=== PATIENT | male | born 1995 | race Caucasian/White ===

== ENCOUNTER 2016-04-15 22:43 | Emergency (ER) | payer OTHER ==
[~2016-04-15] VITALS: Ht 172.7 cm; Wt 57.7 kg
[2016-04-15 22:45] VITALS: BP 119/57; PULSE 110; RESP 20; TEMP 102.9; O2SAT 98
[2016-04-15] MEDS ORDERED: IBUPROFEN 600 MG TAB PO ONE (23:45)
--- NOTE | 2016-04-15 23:57 | PD ---
HPI Chief Complaint: Fever Time Seen by Provider: 23:56 Travel History International Travel<30 days: No Contact w/Intl Traveler<30days: No Traveled to known affect area: No History of Present Illness HPI 21-year-old male presents emergency department with a one-day history of subjective fever and chills, headache, sore throat, congestion, slight cough and nausea. He denies any vomiting. No ear pain. No shortness of breath or wheezing. No abdominal pain or urinary symptoms. No rashes or lesions. He is eating once today. He has had a decreased appetite. He has not taken anything for his fever. [facility] Past Medical History Medical History: Denies Significant Hx Tetanus Vaccination: < 5 Years Past Surgical History Surgical History: No Previous Surgery Social History Alcohol Use: Yes Tobacco Use: Yes Allergies-Medications (Allergen,Severity, Reaction): Coded Allergies: No Known Allergies (Unverified , 04/15/16) Reported Meds & Prescriptions Reported Meds & Active Scripts Active No Active Prescriptions or Reported Medications Review of Systems Except as stated in HPI: all other systems reviewed are Neg Physical Exam Narrative GENERAL: Well-developed, well-nourished in no acute distress. Nontoxic appearing. HEAD: Normocephalic, atraumatic. EYES: Pupils equal round and reactive. Extraocular motions intact. No scleral icterus. No injection or drainage. ENT: TMs clear without erythema. The external auditory canals clear. Nose: clear . Posterior pharynx is pink and moist. No tonsillar edema or exudate. Uvula midline. Airway patent. NECK: Trachea midline.Supple, nontender, moves head freely. No central bony tenderness or spasm. CARDIOVASCULAR: Regular rate and rhythm without murmurs, gallops, or rubs. RESPIRATORY: Clear to auscultation. Breath sounds equal bilaterally. No wheezes , rales, or rhonchi. GASTROINTESTINAL: Abdomen soft, non-tender, nondistended. No hepato-splenomegaly , or palpable masses. No guarding. EXTREMITIES: No clubbing, cyanosis, or edema. No joint tenderness, effusion, or edema noted. BACK: Nontender without deformity or crepitance. No flank tenderness. Data Data Last Documented VS Vital Signs Date Time Temp Pulse Resp B/P Pulse Ox O2 Delivery O2 Flow Rate FiO2 04/15/16 22:45 102.9 110 20 119/57 98 Room Air Orders Group A Rapid Strep Screen (04/15/16 23:43) Influenzae A/B Antigen (04/15/16 23:43) Ibuprofen (Motrin) (04/15/16 23:45) Strep Culture (Group A) (04/15/16 23:45) MDM Medical Decision Making Medical Screen Exam Complete: Yes Emergency Medical Condition: Yes Medical Record Reviewed: Yes Interpretation(s) Rapid strep: Negative for group A strep. Influenza: Negative Differential Diagnosis MDM: High Differential diagnoses: Pneumonia, bronchitis, URI, influenza, strep throat Narrative Course rAPID STREP AND INFLUENZA SENT. pATIENT'S GIVEN 600 MG IBUPROFEN and a by mouth challenge. Patient's rapid strep and influenza are negative. Patient is tolerating liquids. This acute febrile illness Diagnosis Primary Impression: Acute febrile illness Patient Instructions: General Instructions Departure Forms: School Release, Please excuse from school until (free text option): No school 2-3 days. Tests/Procedures Additional Instructions: Rest. Increase fluids. Tylenol and ibuprofen. Follow-up with the clinic at school in 2-3 days.. Return to the ER for problems. Scripts No Active Prescriptions or Reported Meds Disposition: 01 DISCHARGE HOME Condition: Stable Ankush Hernandez Apr 15, 2016 23:57
== END 2016-04-16 00:58 | disposition home or self-care (01) ==
LOC: NEPB 22:43
DX: R50.9 Fever, unspecified (principal); Z72.0 Tobacco use
CPT/HCPCS: 87081; 87804; 87880; 99283